=== PATIENT | female | born 1950 | race Caucasian/White ===

== ENCOUNTER → 2017-06-20 | Outpatient (CLI) | payer MEDICARE, BC ==
[~2017-06-20] MED LIST: KEFLEX500 MG PO; PERCOCET 5-3251 EACH PO; ZOFRAN ODT4 MG PO
== END ==
LOC: M.RAD 15:16
DX: M16.11 Unilateral primary osteoarthritis, right hip (principal)

== ENCOUNTER → 2018-02-10 | Outpatient (CLI) | payer MEDICARE, BC | LOC: M.MRI 11:01 | DX: M47.26 Other spondylosis with radiculopathy, lumbar region (principal); M47.897 Other spondylosis, lumbosacral region; M48.07 Spinal stenosis, lumbosacral region; Z91.041 Radiographic dye allergy status ==